=== PATIENT | female | born 1945 | race Caucasian/White ===

== ENCOUNTER 2018-04-19 22:18 | Day surgery (SDC) | payer MEDICARE ==
[2018-04-19] MEDS ORDERED: SUCCINYLCHOLINE 100 MG/5 ML SYRINGE (J0330) (23:44)
[2018-04-19] MEDS ORDERED: LIDOCAINE 2% INJ 100 MG/5 ML SDV (FOR ANES.) (23:44)
[2018-04-19] MEDS ORDERED: PROPOFOL 200 MG/20 ML VIAL (23:44)
== END 2018-04-20 09:33 | disposition home or self-care (01) ==
LOC: M MSPAV 04-20 00:35 → M ED 22:18 → M SDC 23:43
DX: S27.812A Contusion of esophagus (thoracic part), initial encounter (principal); I10 Essential (primary) hypertension; M15.0 Primary generalized (osteo)arthritis; M54.5 Low back pain; Z90.710 Acquired absence of both cervix and uterus; Z85.828 Personal history of other malignant neoplasm of skin; X58.XXXA Exposure to other specified factors, initial encounter; Y93.89 Activity, other specified; Y92.89 Other specified places as the place of occurrence of the external cause; Y99.8 Other external cause status
CPT/HCPCS: 43235

== ENCOUNTER → 2021-12-20 | Outpatient (REF) | payer MEDICARE ==
[~2021-12-20] MED LIST: HYDR12.55 PO; METO37.5 PO; MULT200T7 PO; NEUR600T PO
== END ==
LOC: M LAB REF 13:44
PROVIDERS: ATTEND Dermatology
DX: T14.90XD Injury, unspecified, subsequent encounter (principal); Y92.9 Unspecified place or not applicable

== ENCOUNTER → 2024-07-09 | Outpatient (REF) | payer MEDICARE | LOC: M SFHCDERM 17:52 | PROVIDERS: ATTEND Nurse Practitioner Family | DX: D04.39 Carcinoma in situ of skin of other parts of face (principal) ==

== ENCOUNTER → 2024-09-09 | Outpatient (REF) | payer MEDICARE ==
[~2024-09-09] MED LIST changes: -MULT200T7 PO; +MULT200T9 PO
== END ==
LOC: M SFHCDERM 16:01
PROVIDERS: ATTEND Dermatology
DX: L82.1 Other seborrheic keratosis (principal)

== ENCOUNTER → 2025-01-21 | Outpatient (REF) | payer MEDICARE | LOC: M SFHCDERM 14:15 | PROVIDERS: ATTEND Nurse Practitioner Family | DX: L98.8 Other specified disorders of the skin and subcutaneous tissue (principal) ==